=== PATIENT | female | born 1960 | race African-American/Black ===

== ENCOUNTER 2020-06-21 09:35 | Emergency (ER) | payer MEDICAID ==
[~2020-06-21] VITALS: Ht 172.7 cm; Wt 73.0 kg
[~2020-06-21 09:35] MED LIST: AZAT50TA18 PO; CALC-769 PO; CITA40TA22 PO; CLAR10 PO; CYCL10TA7 PO; ERGO2000 PO; GARL200T PO; HYDR200T80 PO; HYDR25TA PO; LOSA50TA41 PO; NITR1OIN TD; OMEG-119 PO; OMEP40CA12 PO; PANT20TA17 PO; PRED5TAB PO; SALS500T19 PO
[2020-06-21] MEDS ORDERED: KETOROLAC 60MG/2ML VIAL IM STA (11:04)
[2020-06-21 11:29] VITALS: BP 133/65
[2020-06-21] MEDS ORDERED: NAPR-681 PO (11:40)
[2020-06-21] MEDS ORDERED: TRAM50TA3 MT (11:40)
== END 2020-06-21 11:59 | disposition home or self-care (01) ==
LOC: ER 09:35
DX: S30.0XXA Contusion of lower back and pelvis, initial encounter (principal); Z88.2 Allergy status to sulfonamides; Z88.8 Allergy status to other drugs, medicaments and biological substances; W01.0XXA Fall on same level from slipping, tripping and stumbling without subsequent striking against object, initial encounter; Y93.89 Activity, other specified; Y92.89 Other specified places as the place of occurrence of the external cause; Y99.8 Other external cause status
CPT/HCPCS: 72040; 72100; 96372; 99284; J1885; Z7610